=== PATIENT | male | born 1990 | race Caucasian/White ===

== ENCOUNTER 2018-03-31 14:02 | Emergency (ER) | payer OTHER ==
[~2018-03-31] VITALS: Ht 177.8 cm; Wt 95.5 kg
[2018-03-31 15:45] VITALS: BP 138/82
[2018-03-31] MEDS ORDERED: IBUPROFEN 800 MG TABLET PO ONE (16:45)
[2018-03-31] MEDS ORDERED: LIDOCAINE HCL 3% CREAM 85 GM TUBE TP ONE (16:45)
== END 2018-03-31 17:15 | disposition home or self-care (01) ==
LOC: EMS 14:03
DX: T63.691A Toxic effect of contact with other venomous marine animals, accidental (unintentional), initial encounter (principal); Y92.89 Other specified places as the place of occurrence of the external cause
CPT/HCPCS: 99284